=== PATIENT | female | born 1950 | race American Indian/Alaskan Native ===

== ENCOUNTER 2017-06-01 10:45 | Outpatient (CLI) | payer MEDICARE ==
[2017-06-01 12:05] LABS: Blood Urea Nitrogen 19 mg/dL (7-17)
--- NOTE | 2017-06-01 13:42 | Magnetic Resonance Report ---
MR ABDOMEN WITH AND WITHOUT CONTRAST HISTORY: Renal mass. TECHNIQUE: Multisequence, multiplanar MRI before and after IV gadolinium. FINDINGS: Correlation is made with the CT abdomen pelvis without contrast dated 07/25/13. Both kidneys are normal size, contour and position. There is no evidence for renal mass or cystic disease. There is a focal area of cortical scarring or juxta-parenchymal defect in the superior right kidney measuring up to 1.2 cm. The visualized ureters are normal caliber. A 4.0 x 4.0 x 3.6 cm simple cyst is identified within the right adrenal gland. The left adrenal gland is normal. No adrenal mass. Signal characteristics of the liver, biliary system, pancreas, spleen, visualized bowel loops and aorta are within normal limits. Cholecystectomy changes are noted. No evidence for ascites, adenopathy or enhancing mass. IMPRESSION: No renal mass identified. See above. 4 cm right adrenal cyst.
== END 2017-06-01 10:46 | disposition home or self-care (01) ==
LOC: MRI 10:45
PROVIDERS: ATTEND Urology
DX: N28.89 Other specified disorders of kidney and ureter (principal); E27.8 Other specified disorders of adrenal gland; Z90.49 Acquired absence of other specified parts of digestive tract
CPT/HCPCS: 36415; 74183; 82565; 84520; A9577